=== PATIENT | male | born 1995 | race Caucasian/White ===

== ENCOUNTER 2023-02-13 16:49 | Emergency (ER) | payer BC, MEDICAID ==
--- NOTE | 2023-02-13 17:49 | XRAY Report ---
PROCEDURE: Knee 3 View RT INDICATIONS: pain/tenderness R KNEE TECHNIQUE: 2 views of the right knee(s) were acquired. COMPARISON: None. FINDINGS: Bones: No fractures or dislocations. No suspicious bony lesions. Soft tissues: Soft tissue edema is present at the anterior knee. Secondary to [id number], unable t o evaluate for effusion.. No suspicious soft tissue calcifications or masses. IMPRESSION: Soft tissue prominence most suggestive of edema. No visualized acute fracture or dislocation. However , occult injury cannot be excluded. Recommend short interval imaging follow-up in 7-10 days as clinic ally indicated for additional evaluation. Reviewed by: Love Banks MD on 02/13/2023 5:47 PM PDT Approved by: Love Banks MD on 02/13/2023 5:47 PM PDT Station ID: [id number]
--- NOTE | 2023-02-13 18:00 | ED Physician Documentation ---
PD HPI LOWER EXT INJURY - Stated complaint Stated Complaint: R KNEE PX - Chief complaint Chief Complaint: Ext Problem - History obtained from History obtained from: Patient, Family (mother) - History of Present Illness PD HPI LOW EXT INJURY LOCATION: Right, Knee Type of injury: Blunt / blow Where injury occurred: Home Timing - onset: Last night Timing - duration: Hours Timing - details: Abrupt onset, Still present Improved by: Rest, Immobilization Worsened by: Moving, Palpating Associated symptoms: Swelling. No: Weakness, Numbness, Tingling Contributing factors: No: Anticoagulated, Prior ortho surgery, Prosthetic joint, Work related Similar symptoms before: Has not had sx before Recently seen: Not recently seen - Additional information Additional information: Previously well 27-year-old Suhail Carbajal was working on his house last night. He was investigating water damage to his floor when he put his foot through the some shruthi and hit his knee against the foundation of the house. He has pain to the knee itself and the knee appears unstable. He feels that it will buckle with the foot going laterally and the knee medially he has pain along the medial aspect. Review of Systems Constitutional: denies: Fever Eyes: denies: Decreased vision Ears: denies: Ear pain Nose: denies: Rhinorrhea / runny nose, Congestion Throat: denies: Sore throat Cardiac: denies: Chest pain / pressure Respiratory: denies: Dyspnea, Cough GI: denies: Abdominal Pain, Vomiting, Diarrhea PD PAST MEDICAL HISTORY - Past Medical History Past Medical History: No Cardiovascular: None Respiratory: None Neuro: None Endocrine/Autoimmune: None GI: None : None HEENT: None Psych: None Musculoskeletal: None Derm: None - Past Surgical History Past Surgical History: No - Present Medications Home Medications: Ambulatory Orders Medication Instructions Recorded Confirmed HYDROcod/ACETAM 5/325 [Rives 5/325] 1 - 2 tablet PO Q6H PRN #14 tablet 02/13/23 Lisinopril [Zestril] 10 mg PO DAILY #20 tablet 02/13/23 - Allergies Allergies/Adverse Reactions: Allergies Allergy/AdvReac Type Severity Reaction Status Date / Time No Known Drug Allergies Allergy Verified 02/13/23 16:59 - Social History Does the pt smoke?: No Smoking Status: Never smoker Does the pt drink ETOH?: Yes Does the pt have substance abuse?: No - Immunizations Immunizations are current?: No - POLST Patient has POLST: No PD ED PE NORMAL - Vitals Vital signs reviewed: Yes (Hypertensive marked) - General General: Alert and oriented X 3, No acute distress, Well developed/nourished - HEENT HEENT: Atraumatic, PERRL, EOMI - Respiratory Respiratory: No respiratory distress - Derm Derm: Normal color, Warm and dry, No rash - Extremities Extremities: No deformity, Other (There is pain along the medial collateral ligament there is reduced range of motion with pain to flexion of the knee and there is opening of the medial joint line with valgus applied forces. 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, No motor deficit, No sensory deficit, Normal speech Eye Opening: Spontaneous Motor: Obeys Commands Verbal: Oriented GCS Score: 15 - Psych Psych: Normal mood, Normal affect Results - Vitals Vitals: Vital Signs - 24 hr 02/13/23 02/13/23 02/13/23 16:51 17:03 18:25 Temperature 36.6 C Heart Rate 87 95 Respiratory 18 18 16 Rate Blood Pressure 216/133 H 203/134 H O2 Saturation 97 99 02/13/23 18:26 Temperature Heart Rate Respiratory Rate Blood Pressure 218/135 H O2 Saturation Oxygen O2 Source Room air - Rads (name of study) knee Relevant Findings:: Prelim report reviewed (Impression: Soft tissue prominence most suggestive of edema. No visualized acute fracture or dislocation.), EMP independent interpretation of test PD Medical Decision Making - ED course Complexity details: reviewed results, re-evaluated patient, considered differential, d/w patient, d/w family ED course: 27-year-old male with an injury to his right knee appears to have a medial collateral ligament injury on physical examination and x-ray examination does not demonstrate any evidence of a fracture or dislocation. I am unable to adequately examine the ACL. The patient has large legs. He is placed into a knee immobilizer and referred to orthopedics. Departure - Departure Disposition: 01 Home, Self Care Clinical Impression: Medial collateral ligament sprain of knee Qualifiers: Encounter type: initial encounter Laterality: right Qualified Code(s): S83.411A - Sprain of medial collateral ligament of right knee, initial encounter Condition: Stable Instructions: ED Sprain Knee Collateral Ligaments, ED Hypertension New Begin Tx Follow-Up: Chris Greene MD [Provider Admit Priv/Credential] - Prescriptions: HYDROcod/ACETAM 5/325 [Rives 5/325] 1 - 2 tablet PO Q6H PRN #14 tablet PRN Reason: Pain Lisinopril [Zestril] 10 mg PO DAILY #20 tablet Comments: Suhail, today looks like you have sprained your medial collateral ligament. These will heal by scarring and usually get some strength by about 10 days, and do not get their entire strength for about 8 months. I am unable to examine your anterior cruciate ligament today. This second injury can be a part of an unstable knee and can heal similar to the medial collateral ligament. A follow- up with orthopedics is indicated for reevaluation and examination within the next 2 weeks. In the meantime wear the immobilizer. Rehabilitation is important for full healing. Today in the Emergency Department your blood pressure was elevated. This can happen from the stress of the visit itself, from a current illness or circumstance or from uncontrolled hypertension. If you take blood pressure medications take your usual mediations, have your blood pressure re-checked in an appropriate setting and follow up any elevation with your primary care doctor. Your blood pressure was high enough today that treatment is indicated and we have restarted you on lisinopril 10mg daily. I have e-scribed this medication and some pain mediation to the [facility] Forms: PCP List
[2023-02-13 18:31] VITALS: BP 218/135
[2023-02-13] MEDS ORDERED: lisinopriL 5 MG TABLET PO STA (18:31)
== END 2023-02-13 18:40 | disposition home or self-care (01) ==
LOC: ED 16:49
DX: S83.411A Sprain of medial collateral ligament of right knee, initial encounter (principal); W22.8XXA Striking against or struck by other objects, initial encounter; Y92.009 Unspecified place in unspecified non-institutional (private) residence as the place of occurrence of the external cause
CPT/HCPCS: 73562; 99283; A9270